=== PATIENT | male | born 1965 | race Caucasian/White ===

== ENCOUNTER 2017-10-22 19:15 | Emergency (ER) | payer SELFPAY ==
[~2017-10-22] VITALS: Ht 180.3 cm; Wt 79.4 kg
[2017-10-22 20:13] VITALS: BP 99/62
== END 2017-10-22 20:21 | DRG 914 ==
LOC: ED 19:15
DX: S68.121A Partial traumatic metacarpophalangeal amputation of left index finger, initial encounter (principal); W58.01XA Bitten by alligator, initial encounter; Y93.89 Activity, other specified; Y92.413 State road as the place of occurrence of the external cause